=== PATIENT | female | born 1985 | race Caucasian/White ===

== ENCOUNTER 2020-01-20 19:17 | Emergency (ER) | payer OTHER, SELFPAY ==
[2020-01-20 19:21] VITALS: BP 151/86; PULSE 76; RESP 20; TEMP 36.5; O2SAT 98
[2020-01-20] MEDS: Amoxicillin 875/Clav. 125 TAB PO (19:55)
[2020-01-20] MEDS: Ibuprofen 600 MG TAB PO (19:55)
[2020-01-20] MEDS: Lidocaine/Epinephri/Tetracaine Topical Gel 3 ML TP (19:55)
--- NOTE | 2020-01-20 20:11 | DI.RAD_ITS ---
EXAM: XR WRIST LT COMPLETE and XR hand LT complete CLINICAL HISTORY: dog bite. TECHNIQUE: 2D digital imaging was performed. COMPARISON: CR,XR XR HAND LT COMPLETE from 01/20/2020 FINDINGS: BONES: There is a nondisplaced fracture involving the distal metaphysis of the 5th metatarsal. No radha ny destructive lesion is seen. JOINTS: The carpal bones are normally aligned. SOFT TISSUE: Soft tissue swelling is noted in the medial aspect of the hand and wrist. No radiopaque foreign bodies. IMPRESSION: Nondisplaced fracture involving the distal metaphysis of the 5th metatarsal. Soft tissue swelling ar ound the medial wrist and hand. DATA REPOSITORY: RADIATION DOSE DELIVERED:
--- NOTE | 2020-01-20 20:19 | DI.VRAD_ITS ---
Addendum created by Marychuy Garcia MD on 01/20/2020 10:17:51 PM EDT Findings were discussed with Dr. Coppola at 01/20/2020 10:15 PM EDT. Further discussion about pain near the ulna styloid also suggest a subtle cortical interruption on the AP and oblique view which could represent an occult fracture. Addendum created by Marychuy aGrcia MD on 01/20/2020 10:11:50 PM EDT Findings were discussed with LUNA DESHPANDE at 01/20/2020 9:[address] Deshpande stated patient's pain involves the distal 5th metacarpal. On the oblique view there is a subtle lucency near the metacarpal head and the metaphysis. This linear lucency is suspicious for possible fracture. Initial report created on 01/20/2020 8:18:39 PM EDT PROCEDURE INFORMATION: Exam: XR Left Wrist Exam date and time: 01/20/2020 8:09 PM Age: 34 years old Clinical indication: Injury or trauma; Injury history: Animal bite medial aspect; Initial encounter; Wrist; Left TECHNIQUE: Imaging protocol: XR Left wrist. Views: 3 or more views. COMPARISON: No relevant prior studies available. FINDINGS: Bones/joints: Skin defect medial wrist. No fracture or dislocation. Soft tissues: No radiopaque foreign body. Soft tissue swelling. IMPRESSION: Medial skin defect from animal bite. No acute bony injury. Dictated and Authenticated by: Marychuy Garcia MD. Ordering:HEAVEN Jacobs MD
--- NOTE | 2020-01-20 21:25 | W.ED.GENAD ---
Discharge Plan Disposition Patient Disposition: HOME Condition: Stable Discharge Details Chief Complaint: AnimalBite Clinical Impression: Dog bite of left hand, Fracture of fifth metacarpal bone of left hand Primary Care Provider: Sadie Singh ED Provider: Luna Deshpande Home Meds and New Rx's Prescriptions: New amoxicillin-pot clavulanate [Augmentin] 875-125 mg tablet 1 tab PO BID Qty: 13 RF: 0 Continued levothyroxine 75 MCG tablet 75 mcg PO DAILY RF: 0 metformin 500 mg Tablet 500 mg PO BID RF: 0 Mirena 20 mcg/24 hours (5 yrs) 52 mg Intrauterine Device 1 device INTRAUTERINE ONCE RF: 0 glipizide 10 mg Tablet 10 mg PO BID RF: 0 losartan 25 mg Tablet 25 mg PO DAILY RF: 0 escitalopram oxalate 20 mg Tablet 20 mg PO DAILY RF: 0 Discharge Instructions Instructions: Animal Bite (ED), Hand Fracture (ED) Additional Instructions: Keep splint clean dry and intact. Please follow-up with orthopedics. Call tomorrow to schedule follow-up appointment. Please return to the ED or see your primary care physician in 10 to 12 days for suture removal. Return to the ER for any worsening or new concerning symptoms. Referrals: [facility] [Provider Group] Medical Decision Making 34-year-old right-handed female here with dog bite to her left hand. Neuro motor and sensory intact distal digits. Tendon function intact. She does have bony tenderness over mid to distal fifth metacarpal. Full range of motion of the wrist with no tenderness over wrist. Patient has a 3 cm laceration medial hand over proximal fifth metatarsal. This wound is gaping and oozing blood. Wound was anesthetized with topical let and local injection of lidocaine with epinephrine. Wound was irrigated with copious sterile saline. Wound edges reapproximated and closed loosely without complication. Sterile dressing applied. Patient also with superficial laceration to proximal phalanx. These wounds were also irrigated with copious sterile saline and sterile dressing applied. X-ray of the wrist and hand were performed and was reviewed and interpreted by radiology: Addendum created by Marychuy Garcia MD on 01/20/2020 10:16:37 PM EDT Findings were discussed with Dr. Coppola at 01/20/2020 10:15 PM EDT. Further discussion about pain near the ulna styloid also suggest a subtle cortical interruption on the AP and oblique view which could represent an occult fracture. Addendum created by Marychuy Garcia MD on 01/20/2020 9:59:36 PM EDT Findings were discussed with LUNA DESHPANDE at 01/20/2020 9:56 PM EDT. After conversation with Dr. Deshpande about location of patient's pain corresponding to the 5th metacarpal phalangeal joint, there is a very subtle lucent line involving the 5th metacarpal head seen on the AP and oblique view. The findings are of concern for a nondisplaced fracture. Of note, laceration proximal fifth phalanx is superficial and does not appear to overlie/extend into area of fracture. Also of note, patient does not exhibit any focal tenderness over ulnar styloid. An ulnar gutter splint was applied to treat fracture of the fifth metacarpal head. Splint applied with wrist slightly extended and fingers slightly flexed. Splint was applied over wound dressings. Patient started on Augmentin and will be continued twice a day for the next 7 days. Patient does have diabetes and is at higher risk of wound infection. She should have close follow-up with orthopedics regarding fracture and will benefit from splint removal and wound reassessment under splint. Usual and customary discharge instructions were reviewed with the patient. HPI General Mode of arrival: ambulatory. Date/Time Provider Initiated Documentation: 01/20/20 19:41. Limitations to Documentation: no limitations. Information obtained by: patient. HPI Narrative: 34-year-old female presents with chief complaint of bite wound right hand. Patient notes was prior to arrival she was bit by her pet dog in her right hand. Wound is been bleeding. She has associated pain in the area. No modifiers. No associated numbness or tingling. Patient notes her dogs shots are up-to-date. She is not sure about her tetanus immunization status. Related Data Home Medications Medication Instructions Recorded Confirmed levothyroxine 75 mcg PO DAILY tab-cap 08/22/16 01/20/20 Mirena 1 device INTRAUTERINE ONCE 01/20/20 01/20/20 amoxicillin-pot clavulanate 1 tab PO BID #13 tab 01/20/20 [Augmentin] escitalopram oxalate 20 mg PO DAILY 01/20/20 01/20/20 glipizide 10 mg PO BID 01/20/20 01/20/20 losartan 25 mg PO DAILY 01/20/20 01/20/20 metformin 500 mg PO BID 01/20/20 01/20/20 Previous Rx's Medication Instructions Recorded amoxicillin-pot clavulanate 1 tab PO BID #13 tab 01/20/20 [Augmentin] Allergies Allergy/AdvReac Type Severity Reaction Status Date / Time oxytocin [From Pitocin] Allergy Intermediate Unverified 01/20/20 19:25 General Stated Complaint: AnimalBite RADHIKA: 4 Review of Systems Musculoskeletal Musculoskeletal: Reports as per HPI Integumentary/Breasts Skin/Breast: Reports as per HPI Neurologic Neurologic: Reports as per HPI [facility] Medical History Depression Diabetes mellitus, type 2 (Acute) Hypothyroid Surgical History Appendectomy section Family History Brother Cerebral palsy Social History Smoking/Tobacco Use Status: Never Alcohol Intake: never Drug use: Never Substance use type: does not use Do you feel safe at home: Yes Do you feel safe in your relationship?: Yes Exam Const General: cooperative and no acute distress Cardio Rate: regular rate and not tachycardic Rhythm: regular rhythm Pulses: radial pulses present on the left Skin Trauma: laceration (3cm gaping proximal lt 5th MT medially) and other (small superficial laceration proximal 5th prox phalanx) Neuro General: patient alert, patient awake, patient oriented x3 and tone normal Motor: strength 5/5 throughout (all digits lt hand) Sensory Exam: no sensory deficits noted (distal lt hand) Extrem Left upper extremity: hand Details: neuromotor exam normal, neurosensory exam normal, tendon exam normal and tenderness Location: of the 5th digit Location: at the MCP joint and at the proximal phalanx Course Vital Signs Vital signs: Vital Signs Temperature 36.5 C 01/20/20 19:21 Pulse 76 01/20/20 19:21 Respiratory Rate 20 01/20/20 19:21 Blood Pressure 151/86 H 01/20/20 19:21 Pulse Oximetry 98 01/20/20 19:21 Temperature 36.5 C 01/20/20 19:21 Temperature Source Skin 01/20/20 19:21 Pulse 76 01/20/20 19:21 Respiratory Rate 20 01/20/20 19:21 Respiratory Effort Non-Labored 01/20/20 19:29 Blood Pressure 151/86 H 01/20/20 19:21 Blood Pressure Position Sitting 01/20/20 19:21 Pulse Oximetry 98 01/20/20 19:21 Oxygen Delivery Method Room Air 01/20/20 19:21 Oxygen Flow Rate 0 01/20/20 19:21 Pain Level 5 01/20/20 19:21 Procedures Laceration Laceration 1: Site: hand (Proximal medial hand) Side (If applicable): left Size (cm): 3 Description: linear Depth: simple, single layer Local Anesthetic: Lidocaine 1% and with Epi Amount of anesthesia used (mL): 5 Pre-repair: wound explored, irrigated extensively and deep structures intact Skin layer closed with: nylon Size (cm): 4-0 Number of sutures: 4 Technique: simple, interrupted (Loose approximation) Orthopedic Splinting/Casting Injury #1: Side: left Upper Extremity Injury Location: hand Upper Extremity Immobilizer: ulnar gutter Additional Comments: Patient neurovascular intact post splint application
--- NOTE | 2020-01-20 21:29 | DI.VRAD_ITS ---
Addendum created by Marychuy Garcia MD on 01/20/2020 10:16:37 PM EDT Findings were discussed with Dr. Coppola at 01/20/2020 10:15 PM EDT. Further discussion about pain near the ulna styloid also suggest a subtle cortical interruption on the AP and oblique view which could represent an occult fracture. Addendum created by Marychuy Garcia MD on 01/20/2020 9:59:36 PM EDT Findings were discussed with LUNA DESHPANDE at 01/20/2020 9:56 PM EDT. After conversation with Dr. Deshpande about location of patient's pain corresponding to the 5th metacarpal phalangeal joint, there is a very subtle lucent line involving the 5th metacarpal head seen on the AP and oblique view. The findings are of concern for a nondisplaced fracture. Initial report created on 01/20/2020 9:28:37 PM EDT PROCEDURE INFORMATION: Exam: XR Left Hand Exam date and time: 01/20/2020 9:19 PM Age: 34 years old Clinical indication: Injury or trauma; Injury history: Dog bite; Initial encounter; Wrist and hand; Left TECHNIQUE: Imaging protocol: XR Left hand. Views: 3 or more views. COMPARISON: CR XR WRIST LT COMPLETE 20/01/2020 20:09 FINDINGS: Bones/joints: No fracture or dislocation. Soft tissues: Tissues. Soft tissue swelling involving the medial aspect of the hand and wrist. No radiopaque foreign body. IMPRESSION: 1. No evidence for acute bony injury. If clinical symptoms persist recommend followup film in 7-10 days. 2. Skin defect. Dictated and Authenticated by: Marychuy Garcia MD. Ordering:HEAVEN Jacobs MD
[2020-01-20 22:28] VITALS: BP 140/88; PULSE 77; RESP 20; TEMP 36.6; O2SAT 96
--- NOTE | 2020-01-21 03:19 | NUR.NOTE ---
Animal bite form faxed to [facility] health officer Olive Hollins. Nursing Note:
== END 2020-01-20 20:35 | disposition home or self-care (01) ==
PROVIDERS: Emergency Provider Student in an Organized Health Care Education/Training Program; PCP Nurse Practitioner Family
DX: S61.452A Open bite of left hand, initial encounter (principal); S62.347A Nondisplaced fracture of base of fifth metacarpal bone, left hand, initial encounter for closed fracture; W54.0XXA Bitten by dog, initial encounter; E11.9 Type 2 diabetes mellitus without complications; Z79.84 Long term (current) use of oral hypoglycemic drugs
CPT/HCPCS: 12002; 26600; 90471; 73110; 73130

== ENCOUNTER → 2020-11-16 11:34 | Outpatient (CLI) | payer OTHER, SELFPAY ==
--- NOTE | 2020-11-16 | DI.RAD_ITS ---
Exam(s) XR LUMBAR SPINE AP, LAT EXAM: XR LUMBAR SPINE AP, LAT CLINICAL HISTORY: CHRONIC LBP, NO RADIATIONS. TECHNIQUE: 2D digital imaging was performed. COMPARISON: No exams were available for comparison FINDINGS: There is no evidence of fracture, listhesis, nor pars interarticularis defects. Disc spaces in the l umbar spine exhibit normal height with the exception of narrowing at L1-2 level and anterior osteophy xuan at L1-2 level. Mild anterior wedging of T12 is noted which does not appear acute. There is no s coliosis. Facet joints exhibit mild changes. There of/sacroiliac joints exhibit mild changes on the right side. IMPRESSION: Chronic degenerative disc disease L1-2 level. Other disc spaces in the lumbar spine exhibit normal height. If clinically indicated follow-up MRI can be per DATA REPOSITORY: RADIATION DOSE DELIVERED:
--- NOTE | 2020-11-16 | DI.RAD_ITS ---
Exam(s) XR PELVIS AP EXAM: XR PELVIS AP CLINICAL HISTORY: CHRONIC LBP, NO RADIATIONS. TECHNIQUE: 2D digital imaging was performed. COMPARISON: No exams were available for comparison FINDINGS: There is no evidence of pelvic nor hip fracture. No hip joint space narrowing. Sacroiliac joints ap pear unremarkable. An IUD is noted in the pelvis. Bone density normal. No osseous lesions. IMPRESSION: DATA REPOSITORY: RADIATION DOSE DELIVERED:
== END ==
PROVIDERS: PCP Nurse Practitioner Family; Visit Provider Chiropractor Orthopedic
DX: M54.5 Low back pain (principal)
CPT/HCPCS: 72100; 72170

== ENCOUNTER 2023-05-01 13:49 | Outpatient (REF) | payer SELFPAY ==
[2023-05-01 20:56] LABS: Source Nasal/Nares
[2023-05-01 21:32] LABS: COVID-19 PCR Negative (Negative)
== END 2023-05-01 13:50 | disposition home or self-care (01) ==
LOC: LBN 13:49
PROVIDERS: PCP Nurse Practitioner Family; Visit Provider Physician Assistant Medical
DX: J02.9 Acute pharyngitis, unspecified (principal)
CPT/HCPCS: 87635; 87070

== ENCOUNTER → 2023-09-10 01:08 | Outpatient (CLI) | payer BC, SELFPAY ==
--- NOTE | 2023-09-10 | DI.MAMMO_ITS ---
Exam(s) MAMMO SCREENING EXAM: MAMMO SCREENING CLINICAL HISTORY: Z12.31 Breast cancer screening by mammogram. TECHNIQUE: Bilateral full field digital CC and MLO mammographic images were obtained with 3D tomosyn thesis and utilizing computer aided detection (CAD). COMPARISON: None. This is a baseline mammogram on a 38-year-old.. FINDINGS: There is a single small asymmetric density-possible nodule in each breast, seen on the MLO views, loc ated 10 cm in from the nipple on the left side and non cm in from the nipple on the right side (MLO v iews). Both nodules measure proximally 5 mm. There are no malignant-appearing microcalcification groups in either breast. There is no significant architectural distortion nor skin thickening-retraction. IMPRESSION: Bilateral asymmetric densities-possible small nodules. Bilateral spot compression views and bilatera l breast ultrasound recommended BI-RADS Category 0 - Assessment Incomplete: Need additional imaging evaluation Breast Density - Category B - Scattered areas of fibroglandular density Breast density Category C or D implies that the patient has dense breast tissue. Dense breast tissue can make it harder to find cancer on a mammogram. Dense breast tissue is also associated with an incr eased risk of breast cancer. This information about the result of the mammogram report was provided to the patient to raise their awareness. Use this report when you speak with the patient about their risks for breast cancer, which includes their family history. At that time, you may recommend additional screening tests (Ultrasoun d or MRI) as these tests may add significant information. A negative radiographic report should not delay biopsy if a dominant or clinically suspicious mass is present. Up to ten percent of cancers are not identified on mammography. A negative report may reinforce clinical impression. Adenosis and dense breasts may obscure an underlying neoplasm. False positive reports average 6 to 10%. Patient will receive a letter notifying them of these results.
== END ==
PROVIDERS: PCP Nurse Practitioner Family; Visit Provider Family Medicine
DX: Z12.31 Encounter for screening mammogram for malignant neoplasm of breast (principal)
CPT/HCPCS: 77063; 77067

== ENCOUNTER → 2023-09-15 03:05 | Outpatient (CLI) | payer BC, SELFPAY ==
--- NOTE | 2023-09-15 | DI.MAMMO_ITS ---
Exam(s) US BREAST LT COMPLETE US BREAST RT COMPLETE MG MAMMO SCREEN CALL BACK BI EXAM: MG MAMMO SCREEN CALL BACK BI AND BILATERAL COMPLETE BREAST ULTRASOUND CLINICAL HISTORY: F/U MAMMO,ASYMMETRIC DENSITY BILAT BREASTS,? NODULE. TECHNIQUE: Unilateral spot mammographic images obtained with 3D tomosynthesisand utilizing computer aided detection (CAD). . Complete BILATERAL breast Ultrasound was also performed, including all 4 quadrants, the retroareolar region, and the ipsilateral axilla. COMPARISON: Prior mammograms were reviewed. This additional imaging was performed due to findings described on the recent screening mammogram of . FINDINGS: DIAGNOSTIC MAMMOGRAM: Additional mammographic views performed todaydo not truly dissipate the previously described bilatera l nodules. We proceeded with ultrasound COMPLETE BILATERAL BREAST ULTRASOUND: Ultrasound performed today reveals no significant focal ultrasound findings in the right breast. The left breast at 10 o'clock position there is a subtle finding which is probably just part of the p atient's fibroglandular tissue pattern, as opposed to significant pathology. Finding on ultrasound c orresponding to the small nodular density on the mammogram is not seen. Scanning of the bilateral axillary regions reveals no significant adenopathy on either side.. IMPRESSION: 1. Benign findings. The small nodular density seen on the recent baseline screening mammogram are p robably benign intramammary lymph nodes, given that they are not seen on ultrasound. 2. Separate finding on left breast ultrasound at 10 o'clock position has benign appearance and does not appear to correspond to anything on the mammogram. Appropriate follow-up as discussed by myself with the patient today is repeat bilateral mammogram and ultrasound in 6 months. The patient was informed of these findings and recommendations by myself prior to leaving the departm ent today. BI-RADS Category 3 - 6 month - Probably Benign Finding: Recommend follow-up mammography in 6 months Breast Density - Category B - Scattered areas of fibroglandular density Breast density Category C or D implies that the patient has dense breast tissue. Dense breast tissue can make it harder to find cancer on a mammogram. Dense breast tissue is also associated with an incr eased risk of breast cancer. This information about the result of the mammogram report was provided to the patient to raise their awareness. Use this report when you speak with the patient about their risks for breast cancer, which includes their family history. At that time, you may recommend additional screening tests (Ultrasoun d or MRI) as these tests may add significant information. A negative radiographic report should not delay biopsy if a dominant or clinically suspicious mass is present. Up to ten percent of cancers are not identified on mammography. A negative report may reinforce clinical impression. Adenosis and dense breasts may obscure an underlying neoplasm. False positive reports average 6 to 10%. Patient will receive a letter notifying them of these results.
== END ==
PROVIDERS: PCP Nurse Practitioner Family; Visit Provider Family Medicine
DX: Z12.31 Encounter for screening mammogram for malignant neoplasm of breast (principal); R92.8 Other abnormal and inconclusive findings on diagnostic imaging of breast
CPT/HCPCS: 76642; 77063; 77067

== ENCOUNTER 2024-03-17 01:59 | Outpatient (CLI) | payer BC, SELFPAY ==
--- NOTE | 2024-03-17 14:00 | DI.US_ITS ---
Exam(s) US BREAST LT COMPLETE US BREAST RT COMPLETE MG MAMMO DIAGNOSTIC BI EXAM: MG MAMMO DIAGNOSTIC BI AND BILATERAL COMPLETE BREAST ULTRASOUND CLINICAL HISTORY: BREAST ASYMMETRY N64.89 BREAST DENSITY R92.2 6 MO FU. TECHNIQUE: BILATERAL CC AND MLO mammographic images were obtained with 3D tomosynthesis technique an d utilizing computer aided detection (CAD). ALSO PERFORMED addition spot compression view of an asymmetric density located laterally in the right breast. BILATERAL COMPLETE BREAST ULTRASOUND performed, including all 4 quadrants both axillary regions. COMPARISON: Prior baseline call back mammograms August 2023 reviewed, as was prior ultrasound examina tion 09/15/2023 FINDINGS: DIAGNOSTIC BILATERAL MAMMOGRAM: There are no CAD designations on the present study No new left breast findings, and indeed the small nodular density seen in the left breast on the prio r baseline mammogram is less evident on the present study. In the right breast the previously described MLO visible nodule is less evident. In the inferior asp ect of the breast on the CC view there is a small benign-appearing nodular density which appears unch anged and is probably a benign lymph node. More laterally on the CC view of the right breast there i s a slightly lobulated nodular density measuring 7 mm x 4 mm, located 10 cm in from the nipple on the CC view. Spot compression view of this was performed and reveals configuration for probably benign lymph node (and indeed this is not seen on today's ultrasound, further evidence that it is a benign l ymph node). There are no malignant-appearing microcalcification groups in either breast and there is no new archi tectural distortion or skin thickening-traction. BILATERAL COMPLETE BREAST ULTRASOUND: No evidence of solid or significant cystic lesions in either breast. This is further evidence that t he finding located laterally in the right breast on today's mammogram is benign mammary lymph node. Scanning of both axillary regions is negative for significant adenopathy. IMPRESSION: 1. Benign mammographic findings. No radiographic evidence of malignancy in either breast 2. Negative bilateral complete breast ultrasound Appropriate follow-up is to keep this patient on her yearly mammogram schedule, with earlier imaging if a self detected breast change is noted.. The patient was informed of the findings and follow-up recommendations by myself prior to leaving the department today. BI-RADS Category 2 - Benign Findings Breast Density - Category B - Scattered areas of fibroglandular density Breast density Category C or D implies that the patient has dense breast tissue. Dense breast tissue can make it harder to find cancer on a mammogram. Dense breast tissue is also associated with an incr eased risk of breast cancer. This information about the result of the mammogram report was provided to the patient to raise their awareness. Use this report when you speak with the patient about their risks for breast cancer, which includes their family history. At that time, you may recommend additional screening tests (Ultrasoun d or MRI) as these tests may add significant information. A negative radiographic report should not delay biopsy if a dominant or clinically suspicious mass is present. Up to ten percent of cancers are not identified on mammography. A negative report may reinforce clinical impression. Adenosis and dense breasts may obscure an underlying neoplasm. False positive reports average 6 to 10%. Patient will receive a letter notifying them of these results.
== END 2024-03-17 02:19 ==
LOC: DI 01:59
PROVIDERS: PCP Nurse Practitioner Family; Visit Provider Family Medicine
DX: Z12.31 Encounter for screening mammogram for malignant neoplasm of breast (principal); R92.8 Other abnormal and inconclusive findings on diagnostic imaging of breast; N64.89 Other specified disorders of breast
CPT/HCPCS: 76642; 77062; 77066; G0279